=== PATIENT | female | born 1980 | race Two or more races ===

== ENCOUNTER 2017-08-20 21:03 | Emergency (ER) | payer OTHER ==
[2017-08-20 21:10] VITALS: O2SAT 98
--- NOTE | 2017-08-20 21:24 | ED PDOC ---
HPI: Psych/Substance Abuse Time Seen by Provider: 08/20/17 21:06 Chief Complaint (Nursing): Alcohol Ingestion Chief Complaint (Provider): ETOH History Per: Patient Additional Complaint(s): 37 yo female, no PMH, presents to ED for ETOH intoxication. Per EMS, pt was called in from [email or web address] [facility], pt was drinking today and Restaurant said they were unable to have her find a designated powder truck driver to take her home. No vomiting, no falls, no pain. Pt offers no complaints at this time Past Medical History Reviewed: Nursing Documentation, Vital Signs Vital Signs: Last Vital Signs Temp 97.7 F 08/20/17 21:06 Pulse 97 H 08/20/17 21:06 Resp 16 08/20/17 21:06 BP 121/78 08/20/17 21:06 Pulse Ox 98 08/20/17 21:06 - Medical History PMH: No Chronic Diseases - Surgical History Surgical History: No Surg Hx - Family History Family History: States: No Known Family Hx - Living Arrangements Living Arrangements: With Friends/Others - Social History Current smoker - smoking cessation education provided: No Alcohol: Social Drugs: Denies - Home Medications Home Medications: Ambulatory Orders Medication Instructions Recorded No Known Home Med 08/20/17 - Allergies Allergies/Adverse Reactions: Allergies Allergy/AdvReac Type Severity Reaction Status Date / Time No Known Allergies Allergy Verified 08/20/17 21:23 Review of Systems ROS Statement: Except As Marked, All Systems Reviewed And Found Negative Physical Exam - Reviewed Nursing Documentation Reviewed: Yes Vital Signs Reviewed: Yes - Physical Exam Appears: Positive for: Well, Non-toxic, No Acute Distress Head Exam: Positive for: ATRAUMATIC, NORMAL INSPECTION, NORMOCEPHALIC Skin: Positive for: Normal Color, Warm, DRY Eye Exam: Positive for: EOMI, Normal appearance, PERRL ENT: Positive for: Normal ENT Inspection Neck: Positive for: Normal, Painless ROM Cardiovascular/Chest: Positive for: Regular Rate, Rhythm Respiratory: Positive for: CNT, Normal Breath Sounds Gastrointestinal/Abdominal: Positive for: Normal Exam, Bowel Sounds, Soft Back: Positive for: Normal Inspection Extremity: Positive for: Normal ROM Neurologic/Psych: Positive for: Alert, Oriented - ECG O2 Sat by Pulse Oximetry: 98 Medical Decision Making Medical Decision Making: monitored in ED overnight sleeping. [id number] awake and alert, ambulated to restroom with steady gait stable for discharge in am Disposition - Clinical Impression Clinical Impression: Alcohol use - Patient ED Disposition Is Patient to be Admitted: No - Disposition Disposition: Routine/Home Disposition Time: 04:44 Condition: STABLE Instructions: Alcohol Intoxication (ED) Forms: [facility] (Faroese) - POA Present On Arrival: None
[2017-08-21 05:07] VITALS: BP 118/70; PULSE 78; RESP 19; TEMP 98.9
== END 2017-08-21 05:09 | disposition home or self-care (01) ==
LOC: H.ER 21:03
DX: F10.10 Alcohol abuse, uncomplicated (principal); Y90.9 Presence of alcohol in blood, level not specified

== ENCOUNTER 2018-05-19 18:40 | Emergency (ER) | payer OTHER ==
[2018-05-19 18:44] VITALS: BP 113/79; PULSE 95; RESP 16; TEMP 98; O2SAT 97
--- NOTE | 2018-05-19 19:51 | ED PDOC ---
HPI: Psych/Substance Abuse Time Seen by Provider: 05/19/18 18:57 Chief Complaint (Nursing): Alcohol Ingestion Chief Complaint (Provider): Alcohol Ingestion History Per: Patient History/Exam Limitations: no limitations Additional Complaint(s): Patient is a 37 y/o female who was brought to the ED by EMS for alcohol intoxication. Patient states she was sitting outside and EMS was called. She admits to drinking alcohol and states she had 3 glasses of red wine. She has no other complaints. Patient denies SI HI and hallucinations. Past Medical History Reviewed: Historical Data, Nursing Documentation, Vital Signs Vital Signs: Last Vital Signs Temp 98.0 F 05/19/18 18:42 Pulse 95 H 05/19/18 18:42 Resp 16 05/19/18 18:42 BP 113/79 05/19/18 18:42 Pulse Ox 97 05/19/18 18:42 - Family History Family History: States: Unknown Family Hx - Home Medications Home Medications: Ambulatory Orders Medication Instructions Recorded No Known Home Med 08/20/17 - Allergies Allergies/Adverse Reactions: Allergies Allergy/AdvReac Type Severity Reaction Status Date / Time shellfish derived Allergy SWELLING Verified 05/19/18 18:48 Review of Systems ROS Statement: Except As Marked, All Systems Reviewed And Found Negative Constitutional: Negative for: Fever Psych: Negative for: Psychosis (hallucinations), Suicidal ideation Physical Exam - Reviewed Nursing Documentation Reviewed: Yes Vital Signs Reviewed: Yes - Physical Exam Appears: Positive for: No Acute Distress Head Exam: Positive for: ATRAUMATIC, NORMOCEPHALIC Skin: Positive for: Normal Color, Warm, Dry Eye Exam: Positive for: EOMI, Normal appearance, PERRL Neurologic/Psych: Positive for: Alert, Oriented (x3), Mood/Affect (alcohol on breath), Gait (steady and unassisted). Negative for: Motor/Sensory Deficits - ECG O2 Sat by Pulse Oximetry: 97 (RA) Pulse Ox Interpretation: Normal Medical Decision Making Medical Decision Making: Time: 19:12 Scribe Attestation: Documented by Dallin Navarro, acting as a scribe for Emeterio Heath PA-C. Provider Scribe Attestation: All medical record entries made by the scribe were at my direction and personally dictated by me. I have reviewed the chart and agree that the record accurately reflects my personal performance of the history, physical exam, medical decision making, and the department course for this patient. I have also personally directed, reviewed, and agree with the discharge instructions and disposition. Disposition - Clinical Impression Clinical Impression: Alcohol intoxication - Patient ED Disposition Is Patient to be Admitted: No - Disposition Referrals: [facility] [Outside] Disposition: Routine/Home Disposition Time: 19:50 Condition: STABLE Additional Instructions: SRIKANTH TREJO, thank you for letting us take care of you today. Your provider was Maranda Melchor MD and you were treated for ETOH. The emergency medical care you received today was directed at your acute symptoms. If you were prescribed any medication, please fill it and take as directed. It may take several days for your symptoms to resolve. Return to the Emergency Department if your symptoms worsen, do not improve, or if you have any other problems. Please contact your doctor or call one of the physicians/clinics you have been referred to that are listed on the Patient Visit Information form that is included in your discharge packet. Bring any paperwork you were given at discharge with you along with any medications you are taking to your follow up visit. Our treatment cannot replace ongoing medical care by a primary care provider outside of the emergency department. Thank you for allowing the [facility] team to be part of your care today. If you had an X-Ray or CT scan: A Radiologist will review the ED reading if any change in treatment is needed we will contact you. If you had a blood, urine, or wound culture: It will take several days for the results, if any change in treatment is needed we will contact you. If you had an STI test: It will take 48 hours for the results. Please call after 1 week if you have not heard back. Instructions: Alcohol Use - When Is Drinking a Problem? Forms: [facility] (Croatian)
== END 2018-05-19 20:15 | disposition home or self-care (01) ==
LOC: H.ER 18:40
DX: F10.129 Alcohol abuse with intoxication, unspecified (principal)